=== PATIENT | female | born 1970 | race African-American/Black ===

== ENCOUNTER → 2017-03-07 | Day surgery (SDC) | payer OTHER ==
[~2017-03-07] MED LIST: AMLODIPINE BESYL5 MG; ASPIRIN81 M2 PO; BREO ELLIPTA 21 EACH
--- NOTE | ~2017-03-07 | OR ---
Unit #: [id number] #: [id number] Patient: CARLOZ HAYS [id number] [address] [place], [place] [address] [id number] MR#: [id number] NAME: CARLOZ HAYS ROOM: Date of Procedure: 03/07/2017 Admission Date: 03/07/2017 Surgeon: Ilya Ghotra M.D. : 1970 Attending Physician: Ilya Ghotra M.D. OPERATIVE REPORT PROCEDURE PERFORMED Esophagogastroduodenoscopy to descending duodenum and colonoscopy to cecum. INDICATIONS FOR PROCEDURE The patient with iron-deficiency anemia, undergoing evaluation with upper endoscopy and colonoscopy. MEDICATIONS Monitored anesthesia. POSTOPERATIVE FINDINGS 1. Normal esophagus, stomach, duodenum, and distal duodenum. 2. Colonoscopy completed to cecum. Prep was good. No polyps, masses, or colitis was seen. 3. One large internal hemorrhoid noted. PLAN High-fiber diet. Keep an eye on iron as well as blood counts. DESCRIPTION OF PROCEDURE The patient was explained of the procedure, risks, and benefits along with risks and benefits of anesthesia. She was brought to the endoscopy room. Propofol anesthesia was given. Bite block was placed. The scope was passed down the mouth into the esophagus, stomach, duodenum, and distal duodenum. Findings as described. No biopsies were taken. Gently, the scope was pulled out. At this time, she was turned around and repositioned for colonoscopy. Rectal exam was done, which was normal. Colonoscope was lubricated, passed up the rectum, advanced under direct vision all the way to cecum. Cecum was identified by ileocecal valve and appendiceal orifice. I then started to pull the scope out carefully looking. No polyps, masses, or colitis was seen. Mucosa was normal and healthy. I retroflexed in the rectum, internal hemorrhoids noted. Gently, the scope was pulled out. She tolerated it well. Dictated by... Em Gee/gudelia TD: 03/07/2017 22:50 Unit #: [id number] #: [id number] Patient: CARLOZ HAYS JOB #: [id number] CC: Rigoberto Machuca M.D. OPERATIVE REPORT Page 1 of 1 X Ilya Ghotra MD PROCEDURE OPERATIVE NOTE
== END | disposition home or self-care (01) ==
LOC: COPS 08:31
DX: D50.9 Iron deficiency anemia, unspecified (principal); K64.8 Other hemorrhoids; Z88.0 Allergy status to penicillin; Z88.5 Allergy status to narcotic agent; Z88.8 Allergy status to other drugs, medicaments and biological substances; Z79.82 Long term (current) use of aspirin; Z79.899 Other long term (current) drug therapy; Z90.49 Acquired absence of other specified parts of digestive tract; Z98.51 Tubal ligation status
CPT/HCPCS: 84703